=== PATIENT | male | born 1995 | race Caucasian/White ===

== ENCOUNTER 2016-07-09 11:23 | Emergency (ER) | payer OTHER ==
[2016-07-09] MEDS ORDERED: KETOROLAC 30 MG/ML VIAL (J1885) As Ordered ONE (11:49)
--- NOTE | 2016-07-09 12:55 | EDDOCDS ---
Nurse's Notes [facility] Name: Ramone Edwards Age: 21 yrs Sex: Male : 1995 Arrival Date: 07/09/2016 Time: 11:23 Bed TR8 [facility]: Strain of muscle, fascia and tendon of lower back;Muscle spasm Presentation: 07/09 11:26 Presenting complaint: Patient states: that he was working out his lower back approx 4 ms18 days ago. Last night he was unable to stand up straight and reports falling. Pt states that he has fallen approx 4-5 times today. Acute neurological deficits are not present. Mechanism of Injury: working out. Adult Sepsis Screening: The patient does not have new or worsening altered mentation. Patient's respiratory rate is less than 22. Systolic blood pressure is greater than 100. Patient has a qSOFA score of 0- Negative Sepsis Screen. Suicide/Homicide risk assessment- the patient denies having any suicidal and/or homicidal ideations and does not present with any other emotional, behavioral or mental health complaints. Status: The patient is an active duty service center supervisor. Transition of care: patient was not received from another setting of care. 11:26 Acuity: MOY Level 4 ms18 11:26 Method Of Arrival: Walkin/Carried/Asstd ms18 Triage Assessment: 11:29 General: Appears in no apparent distress, uncomfortable, Behavior is appropriate for ms18 age, cooperative. Pain: Pain currently is 8 out of 10 on a pain scale. HIV screening NA for this visit Offered previously. Neurological: Level of Consciousness is awake, alert, obeys commands, Oriented to person, place, time. Respiratory: No deficits noted. Derm: Skin is pink, warm & dry. Musculoskeletal: Reports falling multiple times due to back pain. Historical: - Allergies: no known allergies; - Home Meds: 1. Motrin Oral as needed 2. Tylenol 325 mg Oral tab 2 tabs every 4-6 hours - PMHx: none; - PSHx: Knee surgery- Right; Tonsillectomy; - Social history: Smoking status: Patient uses tobacco products, current every day smoker. No barriers to communication noted, The patient speaks fluent Yoruba. - Family history: Not pertinent. - : The pt / caregiver states he / she is not on anticoagulants. Home medication list is obtained from the patient. - Exposure Risk Screening:: None identified. Screenin:55 Screening information is obtained from the patient. Fall risk: No risks identified. ttb Assistance ADL's: requires no assistance with activities of daily living. Abuse/DV Screen: The patient / caregiver reports he/she is: not in a situation that causes fear, pain or injury. Nutritional screening: No deficits noted. Advance Directives: Currently, there is no health care proxy. home support is adequate. Assessment: 11:55 General: Appears in no apparent distress, uncomfortable, well nourished, well groomed, ttb Behavior is appropriate for age, cooperative, pleasant. Pain: Location: lower back. Neurological: Level of Consciousness is awake, alert, Denies numbness. Cardiovascular: Chest pain is denied. Respiratory: No deficits noted. Airway is patent Respiratory effort is even, unlabored, Denies cough, shortness of breath. Derm: Skin is normal. Musculoskeletal: Range of motion limited in lower back. Injury Description: No known injury. 12:52 Reassessment: Patient appears in no apparent distress at this time. Patient states ttb feeling better. Patient states symptoms have improved. pain improved after meds. Ready for DC.. General: Appears in no apparent distress. Neurological: Level of Consciousness is awake, alert. Respiratory: No deficits noted. Vital Signs: 11:23 BP 137 / 73; Pulse 80; Resp 16; Temp 98.0(O); Pulse Ox 100% on R/A; Weight 100.24 kg elp (R); Height 6 ft. 0 in. (182.88 cm) (R); Pain 10/10; 12:52 BP 128 / 69; Pulse 62; Resp 18; Temp 96.8; Pulse Ox 98% ; Pain 5/10; ttb 11:23 Body Mass Index 29.97 (100.24 kg, 182.88 cm) [facility] Vitals: 11:23 Log In Time: July 09, 2016 at 11:23. [facility] ED Course: 11:23 Patient visited by Maria Pradhan PCA. elp 11:23 [facility], Jyoti Hess is Private Physician. elp 11:23 Patient moved to Waiting elp 11:24 Patient visited by Maria Pradhan PCA. elp 11:25 Patient moved to Pre RCE elp 11:27 Triage Initiated ms18 11:40 Patient moved to Triage 1 jjr 11:42 Rdudy Gilbert [facility] ar2 11:42 Florencio Fernandes MD is Attending Physician. ar2 11:42 Patient visited by Ruddy Gilbert PA-C. ar2 11:46 Patient moved to PR2 / 26 ttb 11:55 The patient / caregiver is instructed regarding the plan of care and ED course. ttb Accompanied by Friend, Patient has correct armband on for positive identification. 12:38 Warm blanket given. on back. jb5 12:39 Patient visited by Raquel Conti PCA. jb5 12:45 [facility]. ar2 12:52 No IV's were initiated during this patient's visit. No procedures done that require ttb assistance. 12:54 Patient moved to TR8 jb5 Administered Medications: 11:54 Drug: Diazepam 5 mg [diazepam 5 mg/mL injection syringe (1 mL)] Route: IM; Site: right ttb gluteus; 12:30 Follow up: Response: No Adverse Reaction; Pain is decreased ttb 12:48 Follow up: Response: Confirmed pt not driving. ttb 11:55 Drug: ketorolac 60 mg [ketorolac 30 mg/mL (1 mL) injection solution (2 mL)] Route: IM; ttb Site: left gluteus; 12:30 Follow up: Response: No Adverse Reaction; Pain is decreased ttb Order Results: There are currently no results for this order. Outcome: 12:45 Discharge ordered by Provider. ar2 12:52 Discharge Assessment: Patient awake, alert and oriented x 3. No cognitive and/or ttb functional deficits noted. Patient verbalized understanding of disposition instructions. Patient awake and alert. patient administered narcotics - yes. Pt provided with safe discharge. The following High Risk Discharge criteria are identified: None. Discharged to home ambulatory, with friend. Condition: good Condition: stable Condition: improved. Discharge instructions given to patient, friend, Instructed on discharge instructions, follow up and referral plans. medication usage, no driving heavy equipment, no drinking with medication, Demonstrated understanding of instructions, medications, no d/d with meds Pt was receptive of discharge instructions/ teaching. Prescriptions given X 2. No special radiology studies were completed. Property :Personal belongings accompany Pt. 12:54 Patient left the ED. ttb Signatures: Raquel Conti, PROGRAM COORDINATOR PROGRAM COORDINATOR jb5 Neelam Bajwa, RN RN jjr Ruddy Gilbert PA-C PA-C ar2 Mirlande Gonzalez, RN RN ttb Maria Pradhan, PROGRAM COORDINATOR PROGRAM COORDINATOR doreenp Khadijah Zuniga,RN RN ms18 MTDD
--- NOTE | 2016-07-09 12:55 | EDDOCDS ---
Physician Documentation [facility] Name: Ramone Edwards Age: 21 yrs Sex: Male : 1995 Arrival Date: 07/09/2016 Time: 11:23 Bed TR8 Private MD: [facility] [place] Disposition: 07/09/16 12:45 Discharged to Home/Self Care. Impression: Strain of muscle, fascia and tendon of lower back, Muscle spasm. - Condition is Stable. - Discharge Instructions: Back Pain, Adult, Muscle Strain. - Prescriptions for Ibuprofen 800 mg Oral Tablet - take 1 tablet by ORAL route every 8 hours As needed take with food; 30 tablet. Robaxin 500 mg Oral Tablet - take 2 tablet by ORAL route every 6 hours As needed; 40 tablet. - Medication Reconciliation, Local Pharmacy Hours form. - Follow up: [facility] [place]; When: Call to arrange an appointment; Reason: Recheck today's complaints. - Problem is new. - Symptoms have improved. - Notes: recommend rest at home today and through weekend. follow up Tuesday on post Historical: - Allergies: no known allergies; - Home Meds: 1. Motrin Oral as needed 2. Tylenol 325 mg Oral tab 2 tabs every 4-6 hours - PMHx: none; - PSHx: Knee surgery- Right; Tonsillectomy; - Social history: Smoking status: Patient uses tobacco products, current every day smoker. No barriers to communication noted, The patient speaks fluent Croatian. - Family history: Not pertinent. - : The pt / caregiver states he / she is not on anticoagulants. Home medication list is obtained from the patient. - Exposure Risk Screening:: None identified. Vital Signs: 07/09 11:23 BP 137 / 73; Pulse 80; Resp 16; Temp 98.0(O); Pulse Ox 100% on R/A; Weight 100.24 kg / elp 220.99 lbs (R); Height 6 ft. 0 in. (182.88 cm) (R); Pain 10/10; 12:52 BP 128 / 69; Pulse 62; Resp 18; Temp 96.8; Pulse Ox 98% ; Pain 5/10; ttb 11:23 Body Mass Index 29.97 (100.24 kg, 182.88 cm) elp MDM: 11:46 ketorolac 60 mg IM once ordered. ar2 11:46 Diazepam 5 mg IM once ordered. ar2 12:02 Financial registration complete. lg Administered Medications: 11:54 Drug: Diazepam 5 mg [diazepam 5 mg/mL injection syringe (1 mL)] Route: IM; Site: right ttb gluteus; 12:30 Follow up: Response: No Adverse Reaction; Pain is decreased ttb 12:48 Follow up: Response: Confirmed pt not driving. ttb 11:55 Drug: ketorolac 60 mg [ketorolac 30 mg/mL (1 mL) injection solution (2 mL)] Route: IM; ttb Site: left gluteus; 12:30 Follow up: Response: No Adverse Reaction; Pain is decreased ttb Signatures: Jaiden Leone, Ruddy Santos lg, PA-C PA-C ar2 Mirlande Gonzalez RN RN ttb Khadijah Zuniga RN RN ms18 MTDD
--- NOTE | 2016-07-11 13:55 | EDDOCDS ---
Nurse's Notes [facility] Name: Ramone Edwards Age: 21 yrs Sex: Male : 1995 Arrival Date: 07/09/2016 Time: 11:23 Bed TR8 [facility] Diagnosis: Strain of muscle, fascia and tendon of lower back;Muscle spasm Presentation: 07/09 11:26 Presenting complaint: Patient states: that he was working out his lower back approx 4 ms18 days ago. Last night he was unable to stand up straight and reports falling. Pt states that he has fallen approx 4-5 times today. Acute neurological deficits are not present. Mechanism of Injury: working out. Adult Sepsis Screening: The patient does not have new or worsening altered mentation. Patient's respiratory rate is less than 22. Systolic blood pressure is greater than 100. Patient has a qSOFA score of 0- Negative Sepsis Screen. Suicide/Homicide risk assessment- the patient denies having any suicidal and/or homicidal ideations and does not present with any other emotional, behavioral or mental health complaints. Status: The patient is an active duty services rep. Transition of care: patient was not received from another setting of care. 11:26 Acuity: MOY Level 4 ms18 11:26 Method Of Arrival: Walkin/Carried/Asstd ms18 Triage Assessment: 11:29 General: Appears in no apparent distress, uncomfortable, Behavior is appropriate for ms18 age, cooperative. Pain: Pain currently is 8 out of 10 on a pain scale. HIV screening NA for this visit Offered previously. Neurological: Level of Consciousness is awake, alert, obeys commands, Oriented to person, place, time. Respiratory: No deficits noted. Derm: Skin is pink, warm & dry. Musculoskeletal: Reports falling multiple times due to back pain. Historical: - Allergies: no known allergies; - Home Meds: 1. Motrin Oral as needed 2. Tylenol 325 mg Oral tab 2 tabs every 4-6 hours - PMHx: none; - PSHx: Knee surgery- Right; Tonsillectomy; - Social history: Smoking status: Patient uses tobacco products, current every day smoker. No barriers to communication noted, The patient speaks fluent Khmer. - Family history: Not pertinent. - : The pt / caregiver states he / she is not on anticoagulants. Home medication list is obtained from the patient. - Exposure Risk Screening:: None identified. Screenin:55 Screening information is obtained from the patient. Fall risk: No risks identified. ttb Assistance ADL's: requires no assistance with activities of daily living. Abuse/DV Screen: The patient / caregiver reports he/she is: not in a situation that causes fear, pain or injury. Nutritional screening: No deficits noted. Advance Directives: Currently, there is no health care proxy. home support is adequate. Assessment: 11:55 General: Appears in no apparent distress, uncomfortable, well nourished, well groomed, ttb Behavior is appropriate for age, cooperative, pleasant. Pain: Location: lower back. Neurological: Level of Consciousness is awake, alert, Denies numbness. Cardiovascular: Chest pain is denied. Respiratory: No deficits noted. Airway is patent Respiratory effort is even, unlabored, Denies cough, shortness of breath. Derm: Skin is normal. Musculoskeletal: Range of motion limited in lower back. Injury Description: No known injury. 12:52 Reassessment: Patient appears in no apparent distress at this time. Patient states ttb feeling better. Patient states symptoms have improved. pain improved after meds. Ready for DC.. General: Appears in no apparent distress. Neurological: Level of Consciousness is awake, alert. Respiratory: No deficits noted. Vital Signs: 11:23 BP 137 / 73; Pulse 80; Resp 16; Temp 98.0(O); Pulse Ox 100% on R/A; Weight 100.24 kg elp (R); Height 6 ft. 0 in. (182.88 cm) (R); Pain 10/10; 12:52 BP 128 / 69; Pulse 62; Resp 18; Temp 96.8; Pulse Ox 98% ; Pain 5/10; ttb 11:23 Body Mass Index 29.97 (100.24 kg, 182.88 cm) [facility] Vitals: 11:23 Log In Time: July 09, 2016 at 11:23. [facility] ED Course: 11:23 Patient visited by Maria Pradhan PCA. elp 11:23 [facility], Jyoti Hess is Private Physician. elp 11:23 Patient moved to Waiting elp 11:24 Patient visited by Maria Pradhan PCA. elp 11:25 Patient moved to Pre RCE elp 11:27 Triage Initiated ms18 11:40 Patient moved to Triage 1 jjr 11:42 Ruddy Gilbert PA-C [facility]. ar2 11:42 Florencio Fernandes MD is Attending Physician. ar2 11:42 Patient visited by Ruddy Gilbert PA-C. ar2 11:46 Patient moved to PR2 / 26 ttb 11:55 The patient / caregiver is instructed regarding the plan of care and ED course. ttb Accompanied by Friend, Patient has correct armband on for positive identification. 12:38 Warm blanket given. on back. jb5 12:39 Patient visited by Raquel Conti PCA. jb5 12:45 [facility]erral Physician. ar2 12:52 No IV's were initiated during this patient's visit. No procedures done that require ttb assistance. 12:54 Patient moved to TR8 jb5 13:13 [facility] Payment Agreement was scanned into [employer] and attached to record. lg 15:22 T-Sheet-- Draft Copy was scanned into [employer] and attached to record. gb Administered Medications: 11:54 Drug: Diazepam 5 mg [diazepam 5 mg/mL injection syringe (1 mL)] Route: IM; Site: right ttb gluteus; 12:30 Follow up: Response: No Adverse Reaction; Pain is decreased ttb 12:48 Follow up: Response: Confirmed pt not driving. ttb 11:55 Drug: ketorolac 60 mg [ketorolac 30 mg/mL (1 mL) injection solution (2 mL)] Route: IM; ttb Site: left gluteus; 12:30 Follow up: Response: No Adverse Reaction; Pain is decreased ttb Order Results: There are currently no results for this order. Outcome: 12:45 Discharge ordered by Provider. ar2 12:52 Discharge Assessment: Patient awake, alert and oriented x 3. No cognitive and/or ttb functional deficits noted. Patient verbalized understanding of disposition instructions. Patient awake and alert. patient administered narcotics - yes. Pt provided with safe discharge. The following High Risk Discharge criteria are identified: None. Discharged to home ambulatory, with friend. Condition: good Condition: stable Condition: improved. Discharge instructions given to patient, friend, Instructed on discharge instructions, follow up and referral plans. medication usage, no driving heavy equipment, no drinking with medication, Demonstrated understanding of instructions, medications, no d/d with meds Pt was receptive of discharge instructions/ teaching. Prescriptions given X 2. No special radiology studies were completed. Property :Personal belongings accompany Pt. 12:54 Patient left the ED. ttb Signatures: Elana White, Reg Reg gb Jaiden Leone, Reg Reg lg Raquel Conti, MED ADMIN MED ADMIN jb5 Neelam Bajwa, RN RN Ruddy Kang PA-C PAMargarita ar2 Mirlande Gonzalez RN RN ttb Maria Pradhan, MED ADMIN MED ADMIN Khadijah NarayanRN RN ms18 Chart Complete MTDD
--- NOTE | 2016-07-11 13:55 | EDDOCDS ---
Physician Documentation [facility] Name: Ramone Edwards Age: 21 yrs Sex: Male : 1995 Arrival Date: 07/09/2016 Time: 11:23 Bed TR8 Private MD: [facility] [place] Disposition: 07/09/16 12:45 Discharged to Home/Self Care. Impression: Strain of muscle, fascia and tendon of lower back, Muscle spasm. - Condition is Stable. - Discharge Instructions: Back Pain, Adult, Muscle Strain. - Prescriptions for Ibuprofen 800 mg Oral Tablet - take 1 tablet by ORAL route every 8 hours As needed take with food; 30 tablet. Robaxin 500 mg Oral Tablet - take 2 tablet by ORAL route every 6 hours As needed; 40 tablet. - Medication Reconciliation, Local Pharmacy Hours form. - Follow up: [facility] [place]; When: Call to arrange an appointment; Reason: Recheck today's complaints. - Problem is new. - Symptoms have improved. - Notes: recommend rest at home today and through weekend. follow up Tuesday on post Historical: - Allergies: no known allergies; - Home Meds: 1. Motrin Oral as needed 2. Tylenol 325 mg Oral tab 2 tabs every 4-6 hours - PMHx: none; - PSHx: Knee surgery- Right; Tonsillectomy; - Social history: Smoking status: Patient uses tobacco products, current every day smoker. No barriers to communication noted, The patient speaks fluent Korean. - Family history: Not pertinent. - : The pt / caregiver states he / she is not on anticoagulants. Home medication list is obtained from the patient. - Exposure Risk Screening:: None identified. Vital Signs: 07/09 11:23 BP 137 / 73; Pulse 80; Resp 16; Temp 98.0(O); Pulse Ox 100% on R/A; Weight 100.24 kg / elp 220.99 lbs (R); Height 6 ft. 0 in. (182.88 cm) (R); Pain 10/10; 12:52 BP 128 / 69; Pulse 62; Resp 18; Temp 96.8; Pulse Ox 98% ; Pain 5/10; ttb 11:23 Body Mass Index 29.97 (100.24 kg, 182.88 cm) elp MDM: 11:46 ketorolac 60 mg IM once ordered. ar2 11:46 Diazepam 5 mg IM once ordered. ar2 12:02 Financial registration complete. lg 13:13 [facility] Payment Agreement was scanned into [employer] and attached to record. lg 15:22 T-Sheet-- Draft Copy was scanned into [employer] and attached to record. gb Administered Medications: 11:54 Drug: Diazepam 5 mg [diazepam 5 mg/mL injection syringe (1 mL)] Route: IM; Site: right ttb gluteus; 12:30 Follow up: Response: No Adverse Reaction; Pain is decreased ttb 12:48 Follow up: Response: Confirmed pt not driving. ttb 11:55 Drug: ketorolac 60 mg [ketorolac 30 mg/mL (1 mL) injection solution (2 mL)] Route: IM; ttb Site: left gluteus; 12:30 Follow up: Response: No Adverse Reaction; Pain is decreased ttb Signatures: Elana White, Reg Reg gb Jaiden Leone, Reg Reg lg Ruddy Gilbert PA-C PA-C ar2 Mirlande Gonzalez RN RN ttb Khadijah Zuniga RN RN ms18 The chart was reviewed and I authenticate all verbal orders and agree with the evaluation and treatment provided.Attachments: 13:13 [facility] Payment Agreement lg 15:22 T-Sheet-- Draft Copy gb Chart Complete MTDD
--- NOTE | 2016-07-11 13:55 | EDDOCDS ---
Physician Documentation [facility] Name: Ramone Edwards Age: 21 yrs Sex: Male : 1995 Arrival Date: 07/09/2016 Time: 11:23 Bed TR8 Private MD: [facility] [place] Disposition: 07/09/16 12:45 Discharged to Home/Self Care. Impression: Strain of muscle, fascia and tendon of lower back, Muscle spasm. - Condition is Stable. - Discharge Instructions: Back Pain, Adult, Muscle Strain. - Prescriptions for Ibuprofen 800 mg Oral Tablet - take 1 tablet by ORAL route every 8 hours As needed take with food; 30 tablet. Robaxin 500 mg Oral Tablet - take 2 tablet by ORAL route every 6 hours As needed; 40 tablet. - Medication Reconciliation, Local Pharmacy Hours form. - Follow up: [facility] [place]; When: Call to arrange an appointment; Reason: Recheck today's complaints. - Problem is new. - Symptoms have improved. - Notes: recommend rest at home today and through weekend. follow up Tuesday on post Historical: - Allergies: no known allergies; - Home Meds: 1. Motrin Oral as needed 2. Tylenol 325 mg Oral tab 2 tabs every 4-6 hours - PMHx: none; - PSHx: Knee surgery- Right; Tonsillectomy; - Social history: Smoking status: Patient uses tobacco products, current every day smoker. No barriers to communication noted, The patient speaks fluent Syriac. - Family history: Not pertinent. - : The pt / caregiver states he / she is not on anticoagulants. Home medication list is obtained from the patient. - Exposure Risk Screening:: None identified. Vital Signs: 07/09 11:23 BP 137 / 73; Pulse 80; Resp 16; Temp 98.0(O); Pulse Ox 100% on R/A; Weight 100.24 kg / elp 220.99 lbs (R); Height 6 ft. 0 in. (182.88 cm) (R); Pain 10/10; 12:52 BP 128 / 69; Pulse 62; Resp 18; Temp 96.8; Pulse Ox 98% ; Pain 5/10; ttb 11:23 Body Mass Index 29.97 (100.24 kg, 182.88 cm) elp MDM: 11:46 ketorolac 60 mg IM once ordered. ar2 11:46 Diazepam 5 mg IM once ordered. ar2 12:02 Financial registration complete. lg 13:13 [facility] Payment Agreement was scanned into [employer] and attached to record. lg 15:22 T-Sheet-- Draft Copy was scanned into [employer] and attached to record. gb Administered Medications: 11:54 Drug: Diazepam 5 mg [diazepam 5 mg/mL injection syringe (1 mL)] Route: IM; Site: right ttb gluteus; 12:30 Follow up: Response: No Adverse Reaction; Pain is decreased ttb 12:48 Follow up: Response: Confirmed pt not driving. ttb 11:55 Drug: ketorolac 60 mg [ketorolac 30 mg/mL (1 mL) injection solution (2 mL)] Route: IM; ttb Site: left gluteus; 12:30 Follow up: Response: No Adverse Reaction; Pain is decreased ttb Signatures: Elana White, Reg Reg gb Jaiden Leone, Reg Reg lg Ruddy Gilbert PA-C PA-C ar2 Mirlande Gonzalez RN RN ttb Khadijah Zuniga RN RN ms18 The chart was reviewed and I authenticate all verbal orders and agree with the evaluation and treatment provided.Attachments: 13:13 [facility] Payment Agreement lg 15:22 T-Sheet-- Draft Copy gb Chart Complete MTDD
== END 2016-07-09 12:54 | disposition home or self-care (01) ==
LOC: M ED 11:23
DX: S39.012A Strain of muscle, fascia and tendon of lower back, initial encounter (principal); X50.9XXA Other and unspecified overexertion or strenuous movements or postures, initial encounter; Y92.89 Other specified places as the place of occurrence of the external cause; Y93.B9 Activity, other involving muscle strengthening exercises; Y99.8 Other external cause status; F17.210 Nicotine dependence, cigarettes, uncomplicated
CPT/HCPCS: 96372; 99283; J1885; J3360

== ENCOUNTER 2017-03-31 12:16 | Inpatient (IN) | payer OTHER ==
[~2017-03-31] VITALS: Ht 182.9 cm; Wt 109.0 kg
[2017-03-31 15:15] LABS: MEAN CORPUSCULAR HEMOGLOBIN 30.7 pg (27.0-33.0); MEAN CORPUSCULAR VOLUME 87.7 fl (80.0-96.0); PLATELET COUNT, AUTOMATED 206 10^3/uL (150-450); RED CELL DISTRIBUTION WIDTH 12.3 % (11.5-14.5); WHITE BLOOD COUNT 7.8 10^3/uL (4.0-10.0)
[2017-03-31 15:39] LABS: METHADONE URINE NEGATIVE (NEGATIVE)
[2017-03-31 15:46] LABS: ALBUMIN 4.2 GM/DL (3.2-5.2); ALBUMIN/GLOBULIN RATIO 1.35 (1.00-1.93); ALKALINE PHOSPHATASE 74 U/L (45-117); ALT/SGPT 47 U/L (12-78); ANION GAP 5 MEQ/L (8-16); AST/SGOT 20 U/L (15-37); BILIRUBIN,DIRECT 0.1 MG/DL (0.0-0.2); BILIRUBIN,TOTAL 0.3 MG/DL (0.2-1.0); BLOOD UREA NITROGEN 20 MG/DL (7-18); CALCIUM LEVEL 9.2 MG/DL (8.5-10.1); CARBON DIOXIDE LEVEL 29 MEQ/L (21-32); CHLORIDE LEVEL 107 MEQ/L (98-107); CREATININE FOR GFR 0.93 MG/DL (0.70-1.30); GLOMERULAR FILTRATION RATE > 60.0 (>60); GLUCOSE, FASTING 78 MG/DL (70-105); POTASSIUM SERUM 4.1 MEQ/L (3.5-5.1); SODIUM LEVEL 141 MEQ/L (136-145); TOTAL PROTEIN 7.3 GM/DL (6.4-8.2)
[2017-03-31] MEDS ORDERED: traZODone 50 MG TAB PO PRN (17:45)
[2017-03-31] MEDS ORDERED: MAALOX 30 ML SUSP *UDC PO PRN (17:45)
[2017-03-31] MEDS ORDERED: MOM 30ML SUSPENSION UDC PO PRN (17:45)
[2017-03-31 18:45] VITALS: BP 173/84
[2017-03-31] MEDS ORDERED: NICOTINE 21MG/24HR 1 EA TRANSDERMAL TD ONE (19:45)
[2017-03-31] MEDS: ACETAMINOPHEN TAB 650MG DOSE (2X325MG) PO PRN (21:04)
[2017-04-01 06:49] VITALS: BP_SYST 118; BP_SYST 131; BP_DIAS 53; BP_DIAS 81
--- NOTE | 2017-04-01 09:32 | HPEPDOC ---
[facility] Medical History & Physical Date of Admission Mar 31, 2017 History and Physical PCP: [facility] ATTENDING: Dr. Vinh Palmer HPI: 21yoM admitted to [facility] for unspecified depressive disorder, being medically examined today. No acute medical complaints today. Patient states he has history of low back strain, low back pain. Patient states his pain is controlled with stretching. Denies any fevers, chills, weakness, fatigue, NIELSEN, CP, SOB, cough, palpitations , abdominal pain, N/V/D or changes in bowel or bladder habits. PMHx: Low back pain/low back strain Anxiety Depression PSHX: Right knee arthroscopy SOCHX: Resides in: [facility] ([facility] Marital Status: Kids: 1 Employment: Active duty Tobacco use: 2 packs per day ETOH: 5-6 drinks 2 times per month Illicit Drugs: Denies IV Drug Use: Denies Tattoos done unprofessionally: Denies FAMHX: Mother: Unknown Father: Unknown Siblings: 3 sisters Alive, well Children: Alive, well Unexpected deaths due to medical reasons: None. ROS: As noted in HPI, otherwise 11pt ROS of systems reviewed and unremarkable. PE: GEN: 21 yo M, appears stated age. Well-nourished, well developed. No acute distress. Alert and oriented x 3. Pleasant, interactive. HEENT: Normocephalic, atraumatic. Pupils are equal, round, and reactive to light. Extraocular movements are intact. No nystagmus appreciated. Sclera are nonicteric. Conjunctiva without injection. Nose midline. Nasal turbinates without bogginess. EACs both patent BL. TMs both visualized and jaramillo with good cone of light, no bulging or erythema. No facial asymmetry. Moist mucous membranes. Dentition fair. Pharynx pink and moist, no cobblestoning. Neck supple , trachea midline. No lymphadenopathy or thyromegaly appreciated. CHEST: Regular rate and rhythm, +S1, +S2 LUNGS: Clear to auscultation bilaterally. No wheezes, rales, or rhonchi. Breathing appears symmetric and easy. Patient is speaking in full sentences. No accessory muscle use. ABD: Round, soft, non-tender, non-distended. +Bowel sounds throughout. No rebound or guarding. No costovertebral angle tenderness. EXT: Pulses 2+ bilaterally dorsalis pedis and radial. No lower extremity edema appreciated. SKIN: [place], dry, warm. Capillary refill <2sec. No rashes. NEURO: Alert and oriented x 3. Cranial nerves III-XII are intact. No focal deficits appreciated. EKG: pending A&P: 21yoM admitted to [facility] for unspecified depressive disorder 1. Psych. Plan per Psychiatry. Obtain baseline EKG to assure the safety of psychiatric medications as they can prolong the QT interval. 2. Nicotine dependence. Patch available. 3. Chronic low back pain. Continue Tylenol 650 mg every 6 hours as needed. Patient states pain is controlled. 4. Follow up with PCP on discharge. 5. Staff member Kathleen LUNSFORD present throughout exam. Vital Signs Vital Signs Date Time Temp Pulse Resp B/P (MAP) Pulse Ox O2 Delivery O2 Flow Rate FiO2 04/01/17 06:49 97.6 65 18 118/53 (74) Room Air 03/31/17 18:45 98 Laboratory Data Labs 24H Laboratory Tests 2 03/31/17 15:02: Nucleated Red Blood Cells % (auto) 0.0, Anion Gap 5L, Glomerular Filtration Rate > 60.0, Calcium Level 9.2, Aspartate Amino Transf (AST/SGOT) 20, Alanine Aminotransferase (ALT/SGPT) 47, Alkaline Phosphatase 74, Total Bilirubin 0.3, Direct Bilirubin 0.1, Total Protein 7.3, Albumin 4.2, Albumin/Globulin Ratio 1.35, Thyroid Stimulating Hormone (TSH) 1.500, Salicylates Level < 1.7L, Urine Amphetamines Screen NEGATIVE, Urine Benzodiazepines Screen NEGATIVE, Urine Opiates Screen NEGATIVE, Urine Methadone Screen NEGATIVE, Acetaminophen Level < 2.0L, Urine Barbiturates Screen NEGATIVE, Urine Phencyclidine Screen NEGATIVE, Urine Cocaine Metabolite Screen NEGATIVE, Urine Cannabinoids Screen NEGATIVE, Ethyl Alcohol Level < 0.003 CBC/BMP Laboratory Tests 03/31/17 15:02 Red Blood Count 5.21, Mean Corpuscular Volume 87.7, Mean Corpuscular Hemoglobin 30.7, Mean Corpuscular Hemoglobin Concent 35.0, Red Cell Distribution Width 12.3 Home Medications No Active Prescriptions or Reported Meds Allergies Coded Allergies: No Known Allergies (Unverified , 03/31/17) Joselyn Chu Apr 01, 2017 09:32
[2017-04-01] MEDS: NICOTINE 21MG/24HR 1 EA TRANSDERMAL TD SCH (09:50)
[2017-04-01] MEDS: VENLAFAXINE **XR** 37.5 MG CAPSULE PO SCH (16:32)
[2017-04-01 18:00] VITALS: BP 139/74
--- NOTE | 2017-04-01 19:50 | ECGEPIP ---
Stationary ECG Study [facility] Test Date: 2017-04-01 Pat Name: HARSHA HILLMAN Department: Room: [place] [address] Gender: M Workday Director: ROSALBA : 1995 Requested By: Joselyn Chu Order Number: [id number] Reading MD: Vinh Nichols Measurements Intervals [place] Rate: 69 P: 53 LA: 147 QRS: 82 QRSD: 109 T: 43 QT: 382 QTc: 411 Interpretive Statements SINUS RHYTHM WITH SINUS ARRHYTHMIA INCOMPLETE RIGHT BUNDLE BRANCH BLOCK No prior ECG available for comparison at the time of interpretation. Electronically Signed On 04-01-2017 19:50:39 EDT by Vinh Nichols
[2017-04-01] MEDS: traZODone 100 MG TAB PO SCH (21:53)
[2017-04-02 06:57] VITALS: BP 122/58
[2017-04-02] MEDS: VENLAFAXINE **XR** 37.5 MG CAPSULE PO SCH (08:34)
[2017-04-02] MEDS: NICOTINE 21MG/24HR 1 EA TRANSDERMAL TD SCH (08:34)
[2017-04-02 18:00] VITALS: BP 139/65
[2017-04-02] MEDS: traZODone 100 MG TAB PO SCH (20:29)
[2017-04-03 06:00] VITALS: BP 98/49
[2017-04-03] MEDS: VENLAFAXINE **XR** 75MG CAPSULE PO SCH (08:32)
[2017-04-03] MEDS: NICOTINE 21MG/24HR 1 EA TRANSDERMAL TD SCH (08:32)
[2017-04-03] MEDS: ACETAMINOPHEN TAB 650MG DOSE (2X325MG) PO PRN (11:54)
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
--- NOTE | 2017-04-03 14:32 | MHIPN ---
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 MEDICATIONS: - Effexor XR 37.5 mg by mouth every morning - trazodone 100 mg by mouth nightly SUBJECTIVE: "I'm feeling about the same." OBJECTIVE: No major changes from yesterday at admission. The patient denies side effect from medication. The patient has been able to sleep better with the help of trazodone. The patient has low insight. MENTAL STATUS EXAMINATION: The patient is dressed in [facility]. The patient is cooperative during examination. Has fair eye contact. His speech is slow and monotone. Mood is depressed and anxious. Affect is restricted. No evidence of psychotic symptoms. No auditory or visual hallucinations or delusions. Short- and long-term memory is fair. The patient is fully oriented. Associations are intact. Thinking is logical. Thought content is appropriate. The patient is able to contract for safety during the interview. Denies suicidal or homicidal ideation. Insight and judgment is limited. ASSESSMENT: 1. Depression. 2. Suicidal ideation. 3. homicidal thoughts. PLAN: 1. Increase Effexor XR to 75 mg by mouth every morning. 2. Continue trazodone 100 mg by mouth nightly. 3. Continue medication management, individual and group therapy.
[2017-04-03 18:00] VITALS: BP 162/74
[2017-04-03] MEDS: traZODone 100 MG TAB PO SCH (22:08)
[2017-04-04 06:58] VITALS: BP 129/58
[2017-04-04 08:26] VITALS: BP 129/58
[2017-04-04] MEDS: VENLAFAXINE **XR** 75MG CAPSULE PO SCH (08:27)
[2017-04-04] MEDS: NICOTINE 21MG/24HR 1 EA TRANSDERMAL TD SCH (08:28)
[2017-04-04] MEDS ORDERED: traZODone 50 MG TAB PO PRN (11:45)
[2017-04-04 18:00] VITALS: BP 125/58
--- NOTE | 2017-04-04 20:30 | MHIPN ---
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 MEDICATIONS: - Effexor XR 75 mg by mouth in the morning - trazodone 100 mg by mouth at night SUBJECTIVE: "I am feeling about the same." OBJECTIVE: No major changes. The patient denies any side effects from the medications. He is sleeping better with the help of trazodone. The patient has low insight. Continues with some degree of psychomotor retardation. Stays mostly in his room with very little interaction with other patients and staff. MENTAL STATUS EXAMINATION: The patient is dressed in [facility]. The patient is cooperative. Has fair eye contact. Speech is slow and monotone. Mood is depressed and anxious. Affect is restricted. No evidence of delusions, auditory or visual hallucinations. Memory is fair. The patient is fully oriented. Associations are intact. Thinking is logical. Thought content is appropriate. The patient contracts for safety while in the hospital. Insight and judgment limited. ASSESSMENT: 1. Depression. 2. Suicidal ideation. 3. Homicidal thoughts. PLAN: 1. Continue Effexor XR 75 mg by mouth in the morning. 2. Trazodone 100 mg by mouth at night. 3. Continue medication management, individual and group therapy.
[2017-04-04] MEDS: traZODone 50 MG TAB PO PRN ×2 (21:34→22:39)
[2017-04-05 06:33] VITALS: BP 136/70
[2017-04-05] MEDS: NICOTINE 21MG/24HR 1 EA TRANSDERMAL TD SCH (09:43)
[2017-04-05] MEDS: VENLAFAXINE **XR** 75MG CAPSULE PO SCH (09:43)
[2017-04-05] MEDS ORDERED: TRAZO50TA PO (11:23)
[2017-04-05] MEDS ORDERED: NICO21PAT TD (11:23)
[2017-04-05] MEDS ORDERED: VENL75CA47 PO (11:23)
--- NOTE | 2017-04-05 12:07 | IPN ---
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 MEDICATIONS: - Effexor XR 75 mg by mouth daily in morning - trazodone 100 mg by mouth daily at bedtime SUBJECTIVE: I am feeling about the same. OBJECTIVE: No major changes since admission. Patient is tolerating well the medication. There is no evidence of psychotic symptoms. No auditory or visual hallucinations or delusions. Patient interacts with other patient's and staff better. Patient is reporting some degree of sedation with trazodone. MENTAL STATUS EXAMINATION: Patient dressed in [facility], cooperative, fair eye contact. Speech is slow and monotone. Mood is depressed and anxious. Affect is restricted. No psychotic symptoms. No auditory or visual hallucinations or delusions. Short and snf memory are fair. Patient is fully oriented. Associations are intact. Thinking is logical. Thought content is appropriate. Patient is able to contract for safety while in the hospital. Insight and judgment is limited. ASSESSMENT: 1. Depression. 2. Suicidal ideation. 3. Homicidal thoughts. PLAN: 1. Effexor XR 75 mg by mouth daily every morning. 2. Decreased trazodone to 50 mg by mouth daily at bedtime as needed for insomnia. 3. Continue medication management, individual and group therapy.
--- NOTE | 2017-04-06 14:57 | MHDS ---
DATE OF ADMISSION: 03/31/2017 DATE OF DISCHARGE: 04/05/2017 LEGAL STATUS ON ADMISSION: 9.39 legal status. 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 According to the records, the patient was transferred from [facility] to be evaluated for depression, suicidal and homicidal ideation. The patient reported that he has been having suicidal thoughts for the past several months but increased "lately." The patient was thinking about driving his car into something. He says that he has a legal problem in which he is facing court martial. He reports that "this other soldier lied and now I have to face this." He says that he may have to receive 6 years in a senior care or a dishonorable discharge. He has been placed to an E1. The patient also was reporting marital issues and significant symptoms of depression. During the admitting process, he said that if he sees this other soldier that put him in this position, "he would kill him." During the interview today, the patient is calmer, still anxious, labile, but reports significant symptoms of depression, including intermittent suicidal thoughts. The patient reports low energy, having to force himself to get out of bed and wanting to sleep all the time. He said, "my mind spaces out." "My feelings are numb." During the interview, there is no evidence of psychotic symptoms. Trying to clarify the comments he made about wanting to hurt or kill this soldier, that in his report is bringing up "all the problems, and that he lied." He said, "I was angry when I said so, but I really do not think about that." He stated, "I don't think about it anymore." He admits that he has been depressed during several months after he learned that he has to face the court martial. LABORATORIES: At admission: CBC is unremarkable. CMP is within normal limits, BUN of 20, TSH within normal limits. Urine drug screen is negative. Blood alcohol level is negative. HOSPITAL COURSE: After the first evaluation, the patient was started on Effexor XR 37.5 mg by mouth in the morning. He tolerated well this medication and it was increased to 75 mg by mouth in the morning. He also was started on trazodone 100 mg by mouth at night during the first two days, but then was decreased to 50 mg by mouth at night as needed for insomnia. With this medication, the patient was stabilized. The patient improved rather quick from depressive symptoms. On 04/05/2017, he said that he had very good news since he has learned that NCO has made a declaration that goes to his favor and also that he has been able to talk with his and clarify things and they are willing to give the marriage a chance and go to marital therapy. He says that they were not communicating well and now everything is more clear. During the interview, the patient denied suicidal or homicidal ideation. The patient is motivated for treatment. He would like to be discharged and continue the treatment as an outpatient. MENTAL STATUS EXAMINATION: At discharge, the patient is dressed in [facility]. The patient is calm and cooperative. Speech is clear, coherent with normal rate and is spontaneous. Patient has good eye contact. Mood is euthymic. Affect is appropriate and congruent with mood. The patient is oriented to time, place, person and situation. Maintains attention and concentration correctly. Instant recall, recent and remote memory are intact. Thought processes are coherent, logical and goal directed. The patient does not have auditory or visual hallucinations. The patient does not have paranoid, persecutory, somatic, grandiose or roman catholic delusions. The patient denies suicidal or homicidal ideation. Judgment and insight are fair. DISCHARGE DIAGNOSIS: [place] I: Adjustment disorder with depressed mood. [place] II: Deferred. [place] III: None acute. MEDICATIONS: On discharge: - Effexor XR 75 mg by mouth in the morning - trazodone 50 mg by mouth at night as needed for insomnia CONDITION AT DISCHARGE: Stable. No auditory or visual hallucinations. No delusions. No suicidal or homicidal ideation. INSTRUCTIONS TO THE PATIENT: The patient is to continue taking his medications as prescribed and followup appointment. He is advised to maintain absolute sobriety from drugs and alcohol. The patient has a scheduled appointment for medication management, individual psychotherapy and primary care physician.
== END 2017-04-05 13:30 | disposition home or self-care (01) | DRG 881 ==
LOC: M ED 12:16 → M ED INP 17:40 → M PSY 18:38
PROVIDERS: ADMIT Psychiatry & Neurology Psychiatry; ATTEND Psychiatry & Neurology Psychiatry
DX: F43.21 Adjustment disorder with depressed mood (principal); F17.200 Nicotine dependence, unspecified, uncomplicated; M54.5 Low back pain